=== PATIENT | male | born 1960 | race Caucasian/White ===

== ENCOUNTER 2021-11-18 13:37 | Emergency (ER) | payer OTHER ==
[~2021-11-18] VITALS: Ht 175.3 cm; Wt 113.4 kg
[2021-11-18] MEDS ORDERED: RISPERDAL0.5 MG (13:55)
[2021-11-18] MEDS ORDERED: CLONAZEPAM1 M1 PO (13:55)
[2021-11-18] MEDS ORDERED: SERTRALINE20 MG/1 ML PO (13:55)
[2021-11-18] MEDS ORDERED: MIRTAZAPINE30 M1 (13:56)
[2021-11-18] MEDS ORDERED: DITROPAN XL5 MG PO (13:56)
== END 2021-11-18 17:51 | disposition home or self-care (01) ==
LOC: ER 13:37
DX: N43.2 Other hydrocele (principal); R60.0 Localized edema